=== PATIENT | male | born 1985 | race Caucasian/White ===

== ENCOUNTER 2020-02-23 15:08 | Emergency (ER) | payer OTHER ==
[~2020-02-23] VITALS: Ht 175.3 cm; Wt 61.2 kg
[2020-02-23 15:23] VITALS: BP 143/99
[2020-02-23] MEDS ORDERED: cefTRIAXone SOD 1,000 MG VL IM ONE (15:30)
[2020-02-23] MEDS ORDERED: cefTRIAXone SOD 1,000 MG VL ONE (15:33)
== END 2020-02-23 16:08 | disposition home or self-care (01) ==
LOC: ER 15:08
DX: K04.7 Periapical abscess without sinus (principal); F17.210 Nicotine dependence, cigarettes, uncomplicated
CPT/HCPCS: 96372; 99283; J0696